=== PATIENT | male | born 1990 | race Caucasian/White ===

== ENCOUNTER 2021-11-27 12:51 | Emergency (ER) | payer SELFPAY ==
[2021-11-27 13:03] VITALS: BP 130/108; PULSE 71; RESP 20; TEMP 36.7; O2SAT 100
[2021-11-27 14:45] VITALS: BP 111/74; PULSE 61; RESP 18; TEMP 36.8; O2SAT 98
[2021-11-27 18:02] VITALS: BP 120/74; PULSE 66; RESP 17; TEMP 36.4; O2SAT 98
--- NOTE | 2021-11-27 18:29 | ED.GENADULT ---
HPI - General Adult General Chief complaint: Unspecified Stated complaint: needs med refill Time Seen by Provider: 11/27/21 18:29 Source: patient Mode of arrival: ambulatory Limitations: no limitations History of Present Illness HPI narrative: Patient is a 31-year-old male with a history of opiate abuse presenting for evaluation of medication refill. Patient states that he has been taking brew and morphine 8 mg sublingual tablets once daily. Patient states that he recently relocated from [place] and the brittany pack that he had his medication on was left on a [employer] bus. Patient states that he is here to obtain medication for the next 3 days. Patient denies having any primary care physician established. 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 Patient denies any fever, chills, chest pain. He reports intermittent nausea, denies vomiting. Patient states that he has a nausea medication with him. He states that he uses marijuana to help with his nausea as well. Patient states that he had a history of opiate abuse and addiction after he injured himself with a chainsaw, causing a back injury. He states this was not surgical. He was prescribed oral opiates, and then became addicted. Patient states he has been on the Suboxone for the past 3 years while living in [place]. Patient denies current IV drug abuse. States he has been compliant with his Suboxone and abstinent for 3 years from any IV opiates. Review of Systems Review of Systems: CONSTITUTIONAL: Denies fever CARDIOVASCULAR: Denies chest pain RESPIRATORY: Denies cough or dyspnea. GASTROINTESTINAL: Denies abdominal pain SKIN: Denies rash MUSCULOSKELETAL: Reports chronic back pain NEUROLOGIC: Denies headache [facility] Social History Social History (Updated 11/27/21 @ 18:49 by Negin Gillette MD) Smoking status: Never smoker Alcohol intake: never Substance use: current Substance use type: marijuana Other substance usage details: Former opiate abuse Living arrangements: alone Gender identity (if verbalized by the patient): Male Exam Narrative: GENERAL: Awake, alert, conversant HEAD: Normocephalic, atraumatic. EYES: PERRLA and EOMI. ENT: Nares clear, no rhinorrhea or epistaxis. Mucous membranes moist. NECK: Supple. CHEST: No respiratory distress, breathing even and non labored HEART: Regular rate, sinus rhythm ABDOMEN:Non distended, non tender EXTREMITIES: Normal range of motion. No edema. SKIN: Warm, dry, no rash. NEURO:No focal deficits. Alert and oriented x3 Course Vital Signs Vital signs: Vital Signs Temperature 36.7 C 11/27/21 13:03 Pulse Rate 71 11/27/21 13:03 Respiratory Rate 20 11/27/21 13:03 Blood Pressure 130/108 H 11/27/21 13:03 Pulse Oximetry 100 11/27/21 13:03 Temperature 36.4 C L 11/27/21 18:02 Pulse Rate 66 11/27/21 18:02 Respiratory Rate 17 11/27/21 18:02 Blood Pressure 120/74 11/27/21 18:02 Pulse Oximetry 98 11/27/21 18:02 Medical Decision Making MDM Narrative Medical decision making narrative: Patient presenting for evaluation of medication refill after relocating to this area from [place]. Patient lost his prescription for Suboxone, is asking for 3-day prescription. Unfortunately I do not have the license to refill this nor do any of the providers that are on shift with me currently. I placed a phone call to [facility] Warm handoff program for opiate abuse, and left a message with the patient's information. They open tomorrow morning at 8 AM and he may schedule a follow-up appointment with them to obtain care and possible medication refill. Patient has no secondary symptoms at this time. No sign of significant agitation or withdrawal. He has his antinausea medication. No other symptoms at the time of reassessment. Pt discharged home in stable condition. Vital Signs Vital Signs: Vital Signs Temperature 36.7 C 11/27/21 1
--- NOTE | 2021-11-27 19:02 | PC.NURSE ---
pt left dept s/p being seen by edp.
== END 2021-11-27 19:38 | disposition home or self-care (01) ==
LOC: ANHED 18:56
PROVIDERS: Emergency Provider Emergency Medicine
DX: F11.21 Opioid dependence, in remission (principal)
CPT/HCPCS: 99281